=== PATIENT | male | born 1945 | race Caucasian/White ===

== ENCOUNTER 2022-06-30 18:40 | Inpatient (IN) | payer OTHER, MEDICAID ==
[~2022-06-30] VITALS: Ht 170.2 cm; Wt 90.3 kg
[2022-06-30 18:49] VITALS: BP_SYST 134
[2022-06-30] MEDS ORDERED: NACL 0.9% 1,000 ML IV ONE (19:00)
[2022-06-30 19:27] LABS: BASOPHILS # (AUTO) 0.1 K/uL (0.0-0.2); BASOPHILS % (AUTO) 0.6 % (0.0-2.0); EOSINOPHILS % (AUTO) 0.1 % (0.0-4.0); HEMOGLOBIN 13.7 g/dL (14.0-18.0); LYMPHOCYTES # (AUTO) 0.5 K/uL (1.0-5.5); LYMPHOCYTES % (AUTO) 4.3 % (20.5-51.5); MEAN CORPUSCULAR HEMOGLOBIN 32 pg (27-31); MEAN CORPUSCULAR HGB CONC 35 % (32-36); MEAN CORPUSCULAR VOLUME 90 fL (79.0-98.0); MONOCYTES # (AUTO) 0.7 K/uL (0.0-1.0); MONOCYTES % (AUTO) 6.9 % (1.7-9.3); NEUTROPHILS # (AUTO) 9.3 K/uL (1.8-7.7); NEUTROPHILS % (AUTO) 88.1 % (40.0-70.0); PLATELET COUNT (AUTO) 261 K/uL (130-430); RED BLOOD CELL COUNT(AUTO) 4.35 MIL/uL (4.2-6.2); RED CELL DISTRIBUTION WIDTH 13.7 % (9.0-15.0); WHITE BLOOD COUNT (AUTO) 10.5 K/uL (4.8-10.8)
[2022-06-30 19:35] LABS: ANION GAP 12 (5-15); CALCIUM 9.3 mg/dL (8.4-11.0); CHLORIDE 105 mmol/L (98-107); CREATININE 1.36 mg/dL (0.55-1.30); GLUCOSE 254 mg/dL (70-99); UREA NITROGEN, BLOOD 25 mg/dL (8-21)
[2022-06-30 19:41] LABS: ALANINE AMINOTRANSFERASE 35 U/L (12-78); ASPARTATE AMINOTRANSFERASE 20 U/L (10-37); TOTAL BILIRUBIN 0.6 mg/dL (0.0-1.0)
[2022-06-30] MEDS ORDERED: LORazepam 2 MG/ML VIAL IM ONE (21:00)
[2022-06-30] MEDS ORDERED: DIPHENHYDRAMINE INJ 50 MG/ML VIAL IM ONE (21:00)
[2022-06-30] MEDS ORDERED: MELO15TA13 PO (21:35)
[2022-06-30] MEDS ORDERED: OMEP40CA20 PO (21:35)
[2022-06-30] MEDS ORDERED: DONE10TA44 PO (21:35)
[2022-06-30] MEDS ORDERED: MEMA10TA56 PO (21:35)
[2022-06-30] MEDS ORDERED: TAMS-11 PO (21:35)
[2022-06-30] MEDS ORDERED: DAPA10TA PO (21:35)
[2022-06-30] MEDS ORDERED: METF-380 PO (21:35)
[2022-06-30] MEDS ORDERED: AMLO5TAB4 PO (21:35)
[2022-06-30] MEDS ORDERED: GLIP10TA PO (21:35)
[2022-06-30] MEDS ORDERED: CHOL200019 PO (21:35)
[2022-06-30] MEDS ORDERED: LIP40 PO (21:35)
[2022-06-30] MEDS ORDERED: ACETAMINOPHEN 500 MG TABLET ONE (21:36)
[2022-06-30] MEDS ORDERED: DEXTROSE 50% JECT 50 ML DISP.SYRIN IVP PRN (22:45)
[2022-06-30] MEDS ORDERED: INSULIN REGULAR, HUMAN 100 UNITS/ML, 3 ML VIAL (humuLIN R) SUBCUT PRN (22:45)
[2022-06-30] MEDS ORDERED: cefTRIAXone 1 GM IVPB PREMIX 50 ML IV ONE (22:45)
[2022-06-30] MEDS: CHOLECALCIFEROL (VITAMIN D3) 5,000 UNIT TABLET PO SCH (23:00)
[2022-07-01 00:18] VITALS: BP_SYST 147
[2022-07-01] MEDS: NACL 0.9% 1,000 ML IV SCH ×3 (00:23→18:10)
[2022-07-01] MEDS ORDERED: glipiZIDE XL 5 MG TAB ( GLUCOTROL XL) PO SCH (07:00)
[2022-07-01 07:05] LABS: BASOPHILS # (AUTO) 0.1 K/uL (0.0-0.2); BASOPHILS % (AUTO) 0.7 % (0.0-2.0); EOSINOPHILS % (AUTO) 0.4 % (0.0-4.0); HEMATOCRIT 37.2 % (36-54); HEMOGLOBIN 13.1 g/dL (14.0-18.0); LYMPHOCYTES # (AUTO) 1.3 K/uL (1.0-5.5); LYMPHOCYTES % (AUTO) 13.5 % (20.5-51.5); MEAN CORPUSCULAR HEMOGLOBIN 32 pg (27-31); MEAN CORPUSCULAR HGB CONC 35 % (32-36); MEAN CORPUSCULAR VOLUME 89 fL (79.0-98.0); MONOCYTES % (AUTO) 10.8 % (1.7-9.3); NEUTROPHILS # (AUTO) 7.1 K/uL (1.8-7.7); NEUTROPHILS % (AUTO) 74.6 % (40.0-70.0); PLATELET COUNT (AUTO) 230 K/uL (130-430); RED BLOOD CELL COUNT(AUTO) 4.15 MIL/uL (4.2-6.2); RED CELL DISTRIBUTION WIDTH 13.4 % (9.0-15.0); WHITE BLOOD COUNT (AUTO) 9.5 K/uL (4.8-10.8)
[2022-07-01] MEDS ORDERED: GLIP10TA11 PO (07:19)
[2022-07-01 07:32] LABS: ALANINE AMINOTRANSFERASE 43 U/L (12-78); ALBUMIN 3.7 g/dL (3.4-4.8); ANION GAP 13 (5-15); ASPARTATE AMINOTRANSFERASE 74 U/L (10-37); CALCIUM 8.3 mg/dL (8.4-11.0); CHLORIDE 107 mmol/L (98-107); CHOLESTEROL 87 mg/dL (<200); CREATININE 0.81 mg/dL (0.55-1.30); GLUCOSE 102 mg/dL (70-99); HDL CHOLESTEROL 45 mg/dL (>45); LDL CHOLESTEROL 41 mg/dL (<100); TOTAL BILIRUBIN 0.8 mg/dL (0.0-1.0); TRIGLYCERIDES 65 mg/dL (30-150); UREA NITROGEN, BLOOD 17 mg/dL (8-21)
[2022-07-01] MEDS: MAGNESIUM OXIDE 400 MG TABLET PO SCH (09:00)
[2022-07-01] MEDS: ATORVASTATIN 20 MG TABLET PO SCH (09:00)
[2022-07-01] MEDS: TAMSULOSIN HCL 0.4 MG CAP PO SCH (09:00)
[2022-07-01] MEDS: ASCORBIC ACID 500 MG TABLET PO SCH ×2 (09:00→21:00)
[2022-07-01] MEDS: CHOLECALCIFEROL (VITAMIN D3) 2,000 UNIT TABLET PO SCH (09:00)
[2022-07-01] MEDS ORDERED: NON-FORMULARY MEDICATION (Dapagliflozin Propanediol (Farxiga) 1 TAB) PO SCH (09:00)
[2022-07-01] MEDS: DONEPEZIL HCL 5 MG TABLET (ARICEPT) PO SCH (09:00)
[2022-07-01] MEDS: CHOLECALCIFEROL (VITAMIN D3) 5,000 UNIT TABLET PO SCH (09:00)
[2022-07-01] MEDS: amLODIPine BESYLATE 5 MG TABLET PO SCH (09:00)
[2022-07-01] MEDS: MEMANTINE HCL 5 MG TABLET PO SCH ×2 (09:00→21:00)
[2022-07-01] MEDS: PANTOPRAZOLE SODIUM 40 MG TAB PO SCH (09:00)
[2022-07-01] MEDS: MELOXICAM 7.5 MG TABLET PO SCH (09:00)
[2022-07-01] MEDS: LORazepam 2 MG/ML VIAL IM PRN (11:54)
[2022-07-01 12:26] VITALS: BP_SYST 137
[2022-07-01 17:58] VITALS: BP_SYST 128
[2022-07-02 00:27] VITALS: BP_SYST 125
[2022-07-02 04:00] VITALS: BP_SYST 126
[2022-07-02] MEDS: NACL 0.9% 1,000 ML IV SCH (05:19)
[2022-07-02 07:21] LABS: BASOPHILS # (AUTO) 0.1 K/uL (0.0-0.2); BASOPHILS % (AUTO) 0.6 % (0.0-2.0); EOSINOPHILS % (AUTO) 0.2 % (0.0-4.0); HEMATOCRIT 36.1 % (36-54); HEMOGLOBIN 12.6 g/dL (14.0-18.0); LYMPHOCYTES # (AUTO) 1.1 K/uL (1.0-5.5); MEAN CORPUSCULAR HEMOGLOBIN 31 pg (27-31); MEAN CORPUSCULAR HGB CONC 35 % (32-36); MEAN CORPUSCULAR VOLUME 90 fL (79.0-98.0); MONOCYTES # (AUTO) 1.1 K/uL (0.0-1.0); MONOCYTES % (AUTO) 10.1 % (1.7-9.3); NEUTROPHILS # (AUTO) 8.2 K/uL (1.8-7.7); NEUTROPHILS % (AUTO) 78.1 % (40.0-70.0); PLATELET COUNT (AUTO) 225 K/uL (130-430); RED BLOOD CELL COUNT(AUTO) 4.03 MIL/uL (4.2-6.2); RED CELL DISTRIBUTION WIDTH 13.3 % (9.0-15.0); WHITE BLOOD COUNT (AUTO) 10.5 K/uL (4.8-10.8)
[2022-07-02 08:05] LABS: ALANINE AMINOTRANSFERASE 48 U/L (12-78); ALBUMIN 3.3 g/dL (3.4-4.8); ANION GAP 17 (5-15); ASPARTATE AMINOTRANSFERASE 94 U/L (10-37); CALCIUM 7.8 mg/dL (8.4-11.0); CHLORIDE 109 mmol/L (98-107); CREATININE 0.73 mg/dL (0.55-1.30); GLUCOSE 87 mg/dL (70-99); TOTAL BILIRUBIN 0.8 mg/dL (0.0-1.0); UREA NITROGEN, BLOOD 16 mg/dL (8-21)
[2022-07-02] MEDS: DAPAGLIFLOZIN PROPANEDIOL 10 MG PO SCH (09:00)
[2022-07-02] MEDS: MEMANTINE HCL 5 MG TABLET PO SCH ×2 (11:18→20:47)
[2022-07-02] MEDS: PANTOPRAZOLE SODIUM 40 MG TAB PO SCH (11:18)
[2022-07-02] MEDS: MELOXICAM 7.5 MG TABLET PO SCH (11:19)
[2022-07-02] MEDS: TAMSULOSIN HCL 0.4 MG CAP PO SCH (11:19)
[2022-07-02] MEDS: ATORVASTATIN 20 MG TABLET PO SCH (11:20)
[2022-07-02] MEDS: amLODIPine BESYLATE 5 MG TABLET PO SCH (11:21)
[2022-07-02] MEDS: ASCORBIC ACID 500 MG TABLET PO SCH ×2 (11:21→20:47)
[2022-07-02] MEDS: DONEPEZIL HCL 5 MG TABLET (ARICEPT) PO SCH (11:24)
[2022-07-02] MEDS: CHOLECALCIFEROL (VITAMIN D3) 2,000 UNIT TABLET PO SCH (11:24)
[2022-07-02] MEDS: MAGNESIUM OXIDE 400 MG TABLET PO SCH (11:25)
[2022-07-02] MEDS: LR 1,000 ML IV SCH ×2 (11:30→21:16)
[2022-07-02 12:00] VITALS: BP_SYST 136
[2022-07-02] MEDS ORDERED: POTASSIUM CHLORIDE 20 MEQ TAB.PRT.SR PO ONE (12:00)
[2022-07-02] MEDS: LORazepam 2 MG/ML VIAL IM PRN ×2 (15:51→22:32)
[2022-07-02 16:00] VITALS: BP_SYST 128
[2022-07-02 20:00] VITALS: BP_SYST 139
[2022-07-03 00:25] VITALS: BP_SYST 137
[2022-07-03] MEDS: LR 1,000 ML IV SCH ×2 (06:32→16:15)
[2022-07-03 07:45] VITALS: BP_SYST 161
[2022-07-03] MEDS: TAMSULOSIN HCL 0.4 MG CAP PO SCH (09:15)
[2022-07-03] MEDS: DONEPEZIL HCL 5 MG TABLET (ARICEPT) PO SCH (09:15)
[2022-07-03] MEDS: PANTOPRAZOLE SODIUM 40 MG TAB PO SCH (09:16)
[2022-07-03] MEDS: MELOXICAM 7.5 MG TABLET PO SCH (09:16)
[2022-07-03] MEDS: ATORVASTATIN 20 MG TABLET PO SCH (09:16)
[2022-07-03] MEDS: ASCORBIC ACID 500 MG TABLET PO SCH ×2 (09:16→21:00)
[2022-07-03] MEDS: CHOLECALCIFEROL (VITAMIN D3) 2,000 UNIT TABLET PO SCH (09:16)
[2022-07-03] MEDS: MEMANTINE HCL 5 MG TABLET PO SCH ×2 (09:16→21:00)
[2022-07-03] MEDS: amLODIPine BESYLATE 5 MG TABLET PO SCH (09:16)
[2022-07-03] MEDS: MAGNESIUM OXIDE 400 MG TABLET PO SCH (09:16)
[2022-07-03] MEDS: DAPAGLIFLOZIN PROPANEDIOL 10 MG PO SCH (09:45)
[2022-07-03 12:00] VITALS: BP_SYST 151
[2022-07-03 16:05] VITALS: BP_SYST 125
[2022-07-03] MEDS: metFORMIN HCL 500 MG TABLET PO SCH (21:00)
[2022-07-04] VITALS: BP_SYST 134
[2022-07-04 06:57] LABS: ANION GAP 10 (5-15); CALCIUM 8.2 mg/dL (8.4-11.0); CHLORIDE 108 mmol/L (98-107); CREATININE 0.53 mg/dL (0.55-1.30); GLUCOSE 79 mg/dL (70-99); UREA NITROGEN, BLOOD 12 mg/dL (8-21)
[2022-07-04 07:17] LABS: BASOPHILS % (AUTO) 0.5 % (0.0-2.0); EOSINOPHILS # (AUTO) 0.3 K/uL (0.0-0.4); EOSINOPHILS % (AUTO) 4.7 % (0.0-4.0); HEMATOCRIT 34.4 % (36-54); HEMOGLOBIN 12.3 g/dL (14.0-18.0); LYMPHOCYTES # (AUTO) 1.7 K/uL (1.0-5.5); LYMPHOCYTES % (AUTO) 24.3 % (20.5-51.5); MEAN CORPUSCULAR HEMOGLOBIN 31 pg (27-31); MEAN CORPUSCULAR HGB CONC 36 % (32-36); MEAN CORPUSCULAR VOLUME 88 fL (79.0-98.0); MONOCYTES # (AUTO) 0.7 K/uL (0.0-1.0); MONOCYTES % (AUTO) 10.1 % (1.7-9.3); NEUTROPHILS # (AUTO) 4.2 K/uL (1.8-7.7); NEUTROPHILS % (AUTO) 60.4 % (40.0-70.0); PLATELET COUNT (AUTO) 266 K/uL (130-430); RED CELL DISTRIBUTION WIDTH 13.6 % (9.0-15.0); WHITE BLOOD COUNT (AUTO) 6.9 K/uL (4.8-10.8)
[2022-07-04 07:45] VITALS: BP_SYST 140
[2022-07-04] MEDS: ASCORBIC ACID 500 MG TABLET PO SCH ×2 (09:02→21:59)
[2022-07-04] MEDS: TAMSULOSIN HCL 0.4 MG CAP PO SCH (09:02)
[2022-07-04] MEDS: MAGNESIUM OXIDE 400 MG TABLET PO SCH (09:02)
[2022-07-04] MEDS: amLODIPine BESYLATE 5 MG TABLET PO SCH (09:02)
[2022-07-04] MEDS: CHOLECALCIFEROL (VITAMIN D3) 2,000 UNIT TABLET PO SCH (09:02)
[2022-07-04] MEDS: metFORMIN HCL 500 MG TABLET PO SCH ×2 (09:02→21:59)
[2022-07-04] MEDS: MEMANTINE HCL 5 MG TABLET PO SCH ×2 (09:02→21:59)
[2022-07-04] MEDS: PANTOPRAZOLE SODIUM 40 MG TAB PO SCH (09:03)
[2022-07-04] MEDS: DAPAGLIFLOZIN PROPANEDIOL 10 MG PO SCH (09:03)
[2022-07-04] MEDS: ATORVASTATIN 20 MG TABLET PO SCH (09:03)
[2022-07-04] MEDS: MELOXICAM 7.5 MG TABLET PO SCH (09:03)
[2022-07-04] MEDS: DONEPEZIL HCL 5 MG TABLET (ARICEPT) PO SCH (09:36)
[2022-07-04] MEDS ORDERED: POTASSIUM CHLORIDE 20 MEQ TAB.PRT.SR PO ONE (10:30)
[2022-07-04 12:02] VITALS: BP_SYST 157
[2022-07-04] MEDS: LR 1,000 ML IV SCH (13:28)
[2022-07-04] MEDS ORDERED: Potassium Chloride PO (14:53)
[2022-07-04 15:49] VITALS: BP_SYST 131
[2022-07-04] MEDS: POTASSIUM CHLORIDE 20 MEQ TAB.PRT.SR PO SCH ×2 (16:08→21:59)
[2022-07-04 20:00] VITALS: BP_SYST 131
[2022-07-04] MEDS: LORazepam 2 MG/ML VIAL IM PRN (21:56)
[2022-07-05] VITALS (7 sets, daily range): BP systolic 115–146
[2022-07-05] MEDS: DAPAGLIFLOZIN PROPANEDIOL 10 MG PO SCH (09:00)
[2022-07-05] MEDS: LR 1,000 ML IV SCH (09:28)
[2022-07-05 10:19] LABS: ANION GAP 7 (5-15); CALCIUM 8.1 mg/dL (8.4-11.0); CHLORIDE 108 mmol/L (98-107); CREATININE 0.61 mg/dL (0.55-1.30); GLUCOSE 108 mg/dL (70-99); UREA NITROGEN, BLOOD 9 mg/dL (8-21)
[2022-07-05] MEDS: MEMANTINE HCL 5 MG TABLET PO SCH (11:16)
[2022-07-05] MEDS: CHOLECALCIFEROL (VITAMIN D3) 2,000 UNIT TABLET PO SCH (11:17)
[2022-07-05] MEDS: MAGNESIUM OXIDE 400 MG TABLET PO SCH (11:19)
[2022-07-05] MEDS: amLODIPine BESYLATE 5 MG TABLET PO SCH (11:19)
[2022-07-05] MEDS: ASCORBIC ACID 500 MG TABLET PO SCH (11:19)
[2022-07-05] MEDS: metFORMIN HCL 500 MG TABLET PO SCH (11:20)
[2022-07-05] MEDS: DONEPEZIL HCL 5 MG TABLET (ARICEPT) PO SCH (11:20)
[2022-07-05] MEDS: PANTOPRAZOLE SODIUM 40 MG TAB PO SCH (11:20)
[2022-07-05] MEDS: POTASSIUM CHLORIDE 20 MEQ TAB.PRT.SR PO SCH ×2 (11:21→15:00)
[2022-07-05] MEDS: ATORVASTATIN 20 MG TABLET PO SCH (11:21)
[2022-07-05] MEDS: MELOXICAM 7.5 MG TABLET PO SCH (11:22)
[2022-07-05] MEDS: TAMSULOSIN HCL 0.4 MG CAP PO SCH (11:25)
== END 2022-07-05 17:36 | disposition home health service (06) | DRG 177 ==
LOC: SED 18:40 → STU 22:30
PROVIDERS: ADMIT Internal Medicine; ATTEND Internal Medicine
DX: U07.1 COVID-19 (principal); G93.41 Metabolic encephalopathy; N17.0 Acute kidney failure with tubular necrosis; E86.0 Dehydration; E11.9 Type 2 diabetes mellitus without complications; F03.90 Unspecified dementia, unspecified severity, without behavioral disturbance, psychotic disturbance, mood disturbance, and anxiety; N40.0 Benign prostatic hyperplasia without lower urinary tract symptoms; M19.90 Unspecified osteoarthritis, unspecified site; E87.6 Hypokalemia; E66.9 Obesity, unspecified; Z68.31 Body mass index [BMI] 31.0-31.9, adult
CPT/HCPCS: 36415; 70450-TC; 71045; 72170-TC; 76376; 80048; 80053; 80061; 82962; 83036; 83605; 83735; 85025; 87040; 96360; 96372; 99291; G0378; J0696; J1200; J1815; J2060; J7030; J7120